=== PATIENT | female | born 1960 ===

== ENCOUNTER 2020-10-22 06:01 | Day surgery (SDC) | payer OTHER ==
[~2020-10-22 06:01] MED LIST: SYNTHROID112 MCG PO
[2020-10-22] MEDS ORDERED: PERCOCET 5-3251 EACH PO (12:23)
[2020-10-22] MEDS ORDERED: KETO10TA2 PO (12:23)
[2020-10-22] MEDS ORDERED: NEURONTIN300 MG PO (12:24)
== END 2020-10-22 15:45 | disposition home or self-care (01) ==
LOC: CIR.AMB 06:01
PROVIDERS: ATTEND Surgery
DX: K64.8 Other hemorrhoids (principal); K64.4 Residual hemorrhoidal skin tags; K64.2 Third degree hemorrhoids; Z20.822 Contact with and (suspected) exposure to COVID-19